=== PATIENT | male | born 1965 | race American Indian/Alaskan Native ===

== ENCOUNTER 2017-05-08 07:39 | Day surgery (SDC) | payer MEDICARE ==
[2017-05-08 08:11] VITALS: BMI 30.9
--- NOTE | 2017-05-08 09:25 | CP.SDSHP ---
Same Day Surgery H & P - History Proposed Procedure: COLONSCOPY Pre-Op Diagnosis: SEE NOTES - Previous Medical/Surgical History Endocrine/Metabolic: Diabetes, Other - Allergies Allergies: Allergies shrimp Allergy (Intermediate, Verified 05/08/17 08:10) RASH - Physical Exam General Appearance: N Vital Signs: Vital Signs 05/08/17 08:29 Pulse Rate 72 Mental Status: Alert & Oriented x3 Neuro: WNL Heart: Other Lungs: WNL GI: WNL - {Optional Preform as Required} Abdomen: Other Rectal: WNL Integument: WNL : WNL Ortho: WNL ENT: WNL - Impression Pt. Evaluated Today:Candidate for Anesthesia & Procedure: Yes - Date & Time Time: 09:25 Short Stay Discharge - Short Stay Discharge Admitting Diagnosis/Reason for Visit: ENCOUNTER FOR SCREENING FOR MALIGNANT NEOPLASM OF Disposition: HOME/ ROUTINE
[2017-05-08] MEDS ORDERED: Propofol 10 mg/ml Inj (20 ML) ONE ×2 (09:26)
[2017-05-08 10:00] VITALS: O2SAT 100
[2017-05-08] MEDS ORDERED: Belladonna-Phenobarbital PO ONE (10:10)
[2017-05-08 11:05] VITALS: BP 123/79; PULSE 73; RESP 14; TEMP 97.4
== END 2017-05-08 10:45 | disposition home or self-care (01) ==
LOC: C.ENDO 07:39
PROVIDERS: ATTEND Specialist
DX: Z12.11 Encounter for screening for malignant neoplasm of colon (principal); K52.9 Noninfective gastroenteritis and colitis, unspecified; K58.9 Irritable bowel syndrome, unspecified; K64.8 Other hemorrhoids; E11.9 Type 2 diabetes mellitus without complications
CPT/HCPCS: 45380; 82948; 88305; J2704